=== PATIENT | female | born 1960 | race Caucasian/White ===

== ENCOUNTER → 2018-10-21 | Outpatient (CLI) | payer MEDICARE ==
[~2018-10-21] MED LIST: AMITRIPTYLINE H25 M2 PO; FOLIC ACID 40400 MCG PO; HYDROCODON-ACE1 EAC7 PO; HYDROXYCHLOROQ200 M1 PO; IBUPROFEN 800800 M1 PO; IMIPRAMINE HCL10 M2 PO; IRON325 PO; LEVAQUIN 500 M500 M2 PO; MAXZIDE 75-501 EACH PO; METHOTREXATE 22.5 MG PO; NEURONTIN 300300 M1 PO; ONDANSETRON HCL4 M2 PO; PAXIL30 MG PO; PREDNISONE 5 MG5 M1 PO; TRIAMTERENE-HC1 EAC3 PO; UNICOMPLEX M TA1 TA1 PO; ZANAFLEX4 MG PO
== END ==
LOC: M.RAD 09:31
DX: Z12.31 Encounter for screening mammogram for malignant neoplasm of breast (principal)